=== PATIENT | female | born 1985 | race American Indian/Alaskan Native ===

== ENCOUNTER 2018-12-27 05:00 | Emergency (ER) | payer MEDICAID, OTHER ==
[2018-12-27 05:08] VITALS: BP 157/92
[2018-12-27] MEDS ORDERED: KETOROLAC 30 MG/1 ML INJ IV ONE (05:40)
[2018-12-27] MEDS ORDERED: ONDANSETRON 4 MG/2 ML INJ IV ONE (05:40)
[2018-12-27] MEDS ORDERED: SODIUM CHLORIDE 0.9% 1000 ML 1,000 ML IV ONE (05:40)
[2018-12-27 05:59] LABS: Basophils % (Auto) 0.4 % (0.0-1.8); Eosinophils # (Auto) 0.2 K/mm3 (0.0-0.4); Hematocrit 37.7 % (30.3-42.9); Hemoglobin 13.3 gm/dl (10.1-14.3); Lymphocytes # (Auto) 2.6 K/mm3 (1.2-5.4); Lymphocytes % (Auto) 32.8 % (13.4-35.0); Mean Corpuscular HGB Conc 35 % (30-34); Mean Corpuscular Volume 84 fl (79-97); Monocytes # (Auto) 0.3 K/mm3 (0.0-0.8); Monocytes % (Auto) 4.1 % (0.0-7.3); Platelet Count 307 K/mm3 (140-440); Red Blood Count 4.48 M/mm3 (3.65-5.03); Red Cell Distribution Width 13.6 % (13.2-15.2)
[2018-12-27 06:02] LABS: Bilirubin,Urine NEG (Negative); Blood,Urine LG (Negative); Color,Urine Red (Yellow); Urobilinogen,Urine < 2.0 mg/dL (<2.0)
[2018-12-27 06:05] LABS: RBC,Urine > 182.0 /HPF (0.0-6.0); WBC,Urine > 182.0 /HPF (0.0-6.0)
[2018-12-27] MEDS ORDERED: cefTRIAXone/NS 1 GM/50 ML 1 GM/50 ML BAG IV ONE (06:12)
[2018-12-27 06:13] LABS: Calcium 8.7 mg/dL (8.4-10.2); Hemolysis Index 3
--- NOTE | 2018-12-27 06:19 | Emergency Department Report ---
ED N/V/D HPI - General Chief complaint: Nausea/Vomiting/Diarrhea Stated complaint: VOMITTING, NOT FEELING WELL Source: patient, EMS Mode of arrival: Ambulatory Limitations: No Limitations - History of Present Illness Initial comments: Patient is a 33-year-old -Maldivian female with a history of hypertension, morbid obesity and GERD who presents to the ED with complaint of acute onset persistent severe intermittent nausea and vomiting with diarrhea and diffuse abdominal pain for the last 2 hours. Patient states that the last meal she ate was over 8 hours ago on that was pizza. Patient states that there is no one else at home with similar symptoms since she lives alone. Patient denies fever, chills, chest pain, shortness of breath, dizziness, dysuria, urinary frequency and urgency, vaginal bleeding, vaginal discharge, low back pain, syncope, palpitations, or cough MD complaint: nausea, vomiting, diarrhea, abdominal pain -: Sudden, hour(s) (2) Description of Vomiting: food contents, watery, bilious Description of Diarrhea: water Associated Abdominal Pain: No Location: diffuse Radiation: none Severity: severe Pain Scale: 7 Quality: cramping, aching, sharp Consistency: intermittent Improves with: none Worsens with: none Context: possible food poisoning, sick contacts Associated Symptoms: denies other symptoms, myalgias, diaphoresis. denies: chest pain, cough, fever/chills, headaches, loss of appetite, malaise, rash, dysuria, shortness of breath, syncope, weakness - Related Data Previous Rx's Medication Instructions Recorded Last Taken Type Lisinopril [Zestril TAB] 10 mg PO QDAY #30 tablet 09/15/16 Unknown Rx Pantoprazole [Protonix TAB] 40 mg PO QDAY #30 tablet 09/15/16 Unknown Rx Dicyclomine [Bentyl] 20 mg PO Q6H PRN #24 tablet 12/27/18 Unknown Rx Naproxen 500 mg PO Q12H PRN #20 tablet 12/27/18 Unknown Rx Ondansetron [Zofran Odt] 4 mg PO Q6HR PRN #21 tab.rapdis 12/27/18 Unknown Rx cephALEXin [Keflex] 500 mg PO Q6HR #40 capsule 12/27/18 Unknown Rx Allergies Allergy/AdvReac Type Severity Reaction Status Date / Time No Known Allergies Allergy Verified 12/27/18 05:05 ED Review of Systems ROS: Stated complaint: VOMITTING, NOT FEELING WELL Other details as noted in HPI Constitutional: denies: chills, fever Eyes: denies: eye pain, eye discharge, vision change ENT: denies: ear pain, throat pain Respiratory: denies: cough, shortness of breath, wheezing Cardiovascular: denies: chest pain, palpitations Endocrine: no symptoms reported Gastrointestinal: abdominal pain, nausea, vomiting, diarrhea Genitourinary: denies: urgency, dysuria, discharge Musculoskeletal: denies: back pain, joint swelling, arthralgia Skin: denies: rash, lesions Neurological: denies: headache, weakness, paresthesias Psychiatric: denies: anxiety, depression Hematological/Lymphatic: denies: easy bleeding, easy bruising ED Past Medical Hx - Past Medical History Previous Medical History?: Yes Hx Hypertension: Yes Additional medical history: obesity - Surgical History Past Surgical History?: Yes Additional Surgical History: 2 c-sections - Social History Smoking Status: Never Smoker Substance Use Type: None - Medications Home Medications: Home Medications Medication Instructions Recorded Confirmed Last Taken Type Lisinopril [Zestril TAB] 10 mg PO QDAY #30 tablet 09/15/16 Unknown Rx Pantoprazole [Protonix TAB] 40 mg PO QDAY #30 tablet 09/15/16 Unknown Rx Dicyclomine [Bentyl] 20 mg PO Q6H PRN #24 tablet 12/27/18 Unknown Rx Naproxen 500 mg PO Q12H PRN #20 tablet 12/27/18 Unknown Rx Ondansetron [Zofran Odt] 4 mg PO Q6HR PRN #21 tab.rapdis 12/27/18 Unknown Rx cephALEXin [Keflex] 500 mg PO Q6HR #40 capsule 12/27/18 Unknown Rx ED Physical Exam - General Limitations: No Limitations General appearance: alert, in no apparent distress - Head Head exam: Present: atraumatic, normocephalic, normal inspection - Eye Eye exam: Present: normal appearance, PERRL, EOMI Pupils: Present: normal accommodation - ENT ENT exam: Present: normal exam, normal orophraynx, mucous membranes moist, TM's normal bilaterally, normal external ear exam - Neck Neck exam: Present: normal inspection, full ROM. Absent: tenderness, lymphadenopathy - Respiratory Respiratory exam: Present: normal lung sounds bilaterally. Absent: respiratory distress, wheezes, rales, rhonchi, chest wall tenderness, accessory muscle use, prolonged expiratory - Cardiovascular Cardiovascular Exam: Present: regular rate, normal rhythm, normal heart sounds. Absent: systolic murmur, diastolic murmur, rubs, gallop - GI/Abdominal GI/Abdominal exam: Present: soft, normal bowel sounds. Absent: tenderness, guarding, hyperactive bowel sounds, hypoactive bowel sounds, mass - Extremities Exam Extremities exam: Present: normal inspection, full ROM, normal capillary refill - Back Exam Back exam: Present: normal inspection, full ROM. Absent: tenderness, CVA tenderness (R), muscle spasm, paraspinal tenderness - Neurological Exam Neurological exam: Present: alert, oriented X3, CN II-XII intact, normal gait, reflexes normal - Psychiatric Psychiatric exam: Present: normal affect, normal mood - Skin Skin exam: Present: warm, dry, intact, normal color. Absent: rash ED Course Vital Signs 12/27/18 05:02 Temperature 98.4 F Pulse Rate 60 Respiratory 18 Rate Blood Pressure 157/92 O2 Sat by Pulse 96 Oximetry - Reevaluation(s) Reevaluation #1: 12/27/18 06:16 This is a 33-year-old -Maldivian female who presented to the ED with complaint of acute onset persistent nausea and vomiting and diarrhea and diffuse abdominal pain for the last 12 hours. In the ED, patient is alert and oriented 3 and is not in distress with normal vital signs. Patient was treated for nausea and vomiting in the ED. On reevaluation, patient's pain and nausea and vomiting have significantly improved. Lab test results were reviewed and showed acute urinary tract infection for which she received treatment in the ED. Patient was discharged home on antiemetics and pain medications as well as prescription for antibiotics for UTI. Patient was advised to return to the ED immediately if symptoms get worse otherwise follow-up with her primary care physician in 7-10 days for reevaluation. ED Medical Decision Making - Lab Data Result diagrams: 12/27/18 05:44 - Medical Decision Making This is a 33-year-old -Maldivian female who presented to the ED with compl aint of acute onset persistent nausea and vomiting and diarrhea and diffuse abdominal pain for the last 12 hours. In the ED, patient is alert and oriented 3 and is not in distress with normal vital signs. Patient was treated for nausea and vomiting in the ED. On reevaluation, patient's pain and nausea and vomiting have significantly improved. Lab test results were reviewed and showed acute urinary tract infection for which she received treatment in the ED. Patient was discharged home on antiemetics and pain medications as well as prescription for antibiotics for UTI. Patient was advised to return to the ED immediately if symptoms get worse otherwise follow-up with her primary care alejandro mccabe in 7-10 days for reevaluation. - Differential Diagnosis Viral gastroenteritis; Acute UTI; GERD Critical care attestation.: If time is entered above; I have spent that time in minutes in the direct care of this critically ill patient, excluding procedure time. ED Disposition Clinical Impression: Acute urinary tract infection, Nausea, vomiting and diarrhea, Viral gastroenteritis Abdominal pain Qualifiers: Abdominal location: generalized Qualified Code(s): R10.84 - Generalized abdominal pain Disposition: TO HOME OR SELFCARE Is pt being admited?: No Does the pt Need Aspirin: No Condition: Stable Instructions: Acute Nausea and Vomiting (ED), Abdominal Pain (ED), Urinary Tract Infection in Women (ED), Gastroenteritis (ED) Additional Instructions: Maintain a clear liquid diet for the next 12-24 hours. Take medication with food, drink plenty of fluids and follow-up with your primary care physician in 5-7 days for reevaluation. Return to the ED immediately if symptoms get worse. Prescriptions: Dicyclomine [Bentyl] 20 mg PO Q6H PRN #24 tablet PRN Reason: Pain , Severe (7-10) cephALEXin [Keflex] 500 mg PO Q6HR #40 capsule Naproxen 500 mg PO Q12H PRN #20 tablet PRN Reason: Pain , Severe (7-10) Ondansetron [Zofran Odt] 4 mg PO Q6HR PRN #21 tab.rapdis PRN Reason: Nausea Referrals: PRIMARY CARE,MD [Primary Care Provider] - 3-5 Days Forms: Work/School Release Form(ED) Time of Disposition: 06:27 Print Language: [place]
[2018-12-27 07:36] LABS: Alanine Aminotransferase 12 units/L (7-56); Albumin 4.1 g/dL (3.9-5); BUN/Creatinine Ratio 18; Blood Urea Nitrogen 14 mg/dL (7-17)
== END 2018-12-27 07:46 | disposition home or self-care (01) ==
LOC: ED 05:00
DX: A08.4 Viral intestinal infection, unspecified (principal); N39.0 Urinary tract infection, site not specified
CPT/HCPCS: 36415; 80053; 81001; 83690; 84703; 85025; 96361; 96365; 96375; 99284; J0696; J1885; J2405; J7030

== ENCOUNTER 2019-04-02 01:13 | Emergency (ER) | payer OTHER ==
[2019-04-02] MEDS ORDERED: FAMOTIDINE 20 MG/2 ML INJ IV ONE (02:46)
[2019-04-02] MEDS ORDERED: DICYCLOMINE 20 MG TAB PO ONE (02:46)
[2019-04-02] MEDS ORDERED: SODIUM CHLORIDE 0.9% 1000 ML 1,000 ML IV ONE (02:46)
[2019-04-02] MEDS ORDERED: ONDANSETRON 4 MG/2 ML INJ IV ONE (02:46)
[2019-04-02 03:04] LABS: Bacteria,Urine 1+ /HPF (Negative); Bilirubin,Urine NEG (Negative); Blood,Urine NEG (Negative); Color,Urine Yellow (Yellow); Mucus,Urine 2+ /HPF; Urobilinogen,Urine < 2.0 mg/dL (<2.0)
[2019-04-02 03:10] LABS: Basophils % (Auto) 0.3 % (0.0-1.8); Eosinophils # (Auto) 0.1 K/mm3 (0.0-0.4); Eosinophils % (Auto) 0.7 % (0.0-4.3); Hematocrit 39.2 % (30.3-42.9); Lymphocytes # (Auto) 1.6 K/mm3 (1.2-5.4); Lymphocytes % (Auto) 17.9 % (13.4-35.0); Mean Corpuscular HGB Conc 36 % (30-34); Mean Corpuscular Volume 84 fl (79-97); Monocytes # (Auto) 0.3 K/mm3 (0.0-0.8); Monocytes % (Auto) 3.2 % (0.0-7.3); Platelet Count 422 K/mm3 (140-440); Red Blood Count 4.65 M/mm3 (3.65-5.03); Red Cell Distribution Width 14.4 % (13.2-15.2)
[2019-04-02 03:34] LABS: Alanine Aminotransferase 21 units/L (7-56); Albumin 4.4 g/dL (3.9-5); BUN/Creatinine Ratio 13; Blood Urea Nitrogen 10 mg/dL (7-17); Calcium 8.9 mg/dL (8.4-10.2); Hemolysis Index 0
--- NOTE | 2019-04-02 04:26 | Emergency Department Report ---
ED N/V/D HPI - General Chief complaint: Abdominal Pain Stated complaint: SEVERE ABD PAIN/EMESIS Source: patient Mode of arrival: Ambulatory Limitations: No Limitations - History of Present Illness Initial comments: Patient is a 33-year-old Romanian female with a history of hypertension, morbid obesity and [id number] diabetes who presents to the ED record of acute onset persistent intermittent nausea and vomiting with epigastric pain and diarrhea for the last 4 hours. The patient states that her last meal was from a fast food restaurant and suspects that she may have had food poisoning. Patient denies dysuria, urinary frequency and urgency, hematemesis, hematochezia, vaginal bleeding, vaginal discharge, chest pain, shortness of breath, sore throat, dizziness, headache, back pain or syncope. MD complaint: nausea, vomiting, abdominal pain -: Sudden, hour(s) (4) Description of Vomiting: food contents, watery Description of Diarrhea: water Associated Abdominal Pain: Yes (epigastric and diffuse) Location: diffuse, epigastric Radiation: none Severity: moderate Pain Scale: 5 Quality: cramping, aching Consistency: intermittent Improves with: none Worsens with: vomiting Context: possible food poisoning Associated Symptoms: denies other symptoms, loss of appetite, malaise, nausea/v omiting. denies: myalgias, chest pain, cough, diaphoresis, fever/chills, headaches, rash, dysuria, shortness of breath, syncope, weakness, other - Related Data Previous Rx's Medication Instructions Recorded Last Taken Type Pantoprazole [Protonix TAB] 40 mg PO QDAY #30 tablet 09/15/16 Unknown Rx lisinopriL [Zestril TAB] 10 mg PO QDAY #30 tablet 09/15/16 Unknown Rx Dicyclomine [Bentyl] 20 mg PO Q6H PRN #24 tablet 12/27/18 Unknown Rx Naproxen 500 mg PO Q12H PRN #20 tablet 12/27/18 Unknown Rx Ondansetron [Zofran Odt] 4 mg PO Q6HR PRN #21 tab.rapdis 12/27/18 Unknown Rx cephALEXin [Keflex] 500 mg PO Q6HR #40 capsule 12/27/18 Unknown Rx Dicyclomine [Bentyl] 20 mg PO Q6H PRN #20 tablet 04/02/19 Unknown Rx Famotidine [Pepcid] 20 mg PO Q12H #30 tablet 04/02/19 Unknown Rx Ondansetron [Zofran ODT TAB] 8 mg PO Q8HR PRN #21 tab.rapdis 04/02/19 Unknown Rx Allergies Allergy/AdvReac Type Severity Reaction Status Date / Time No Known Allergies Allergy Verified 12/27/18 05:05 ED Review of Systems ROS: Stated complaint: SEVERE ABD PAIN/EMESIS Other details as noted in HPI Constitutional: denies: chills, fever Eyes: denies: eye pain, eye discharge, vision change ENT: denies: ear pain, throat pain Respiratory: denies: cough, shortness of breath, wheezing Cardiovascular: denies: chest pain, palpitations Endocrine: no symptoms reported Gastrointestinal: abdominal pain, nausea, vomiting, diarrhea Genitourinary: denies: urgency, dysuria, discharge Musculoskeletal: denies: back pain, joint swelling, arthralgia Skin: denies: rash, lesions Neurological: denies: headache, weakness, paresthesias Psychiatric: denies: anxiety, depression Hematological/Lymphatic: denies: easy bleeding, easy bruising ED Past Medical Hx - Past Medical History Previous Medical History?: Yes Hx Hypertension: Yes Additional medical history: Morbid obesity - Surgical History Past Surgical History?: Yes Additional Surgical History: 2 c-sections - Social History Smoking Status: Never Smoker Substance Use Type: Alcohol - Medications Home Medications: Home Medications Medication Instructions Recorded Confirmed Last Taken Type Pantoprazole [Protonix TAB] 40 mg PO QDAY #30 tablet 09/15/16 Unknown Rx lisinopriL [Zestril TAB] 10 mg PO QDAY #30 tablet 09/15/16 Unknown Rx Dicyclomine [Bentyl] 20 mg PO Q6H PRN #24 tablet 12/27/18 Unknown Rx Naproxen 500 mg PO Q12H PRN #20 tablet 12/27/18 Unknown Rx Ondansetron [Zofran Odt] 4 mg PO Q6HR PRN #21 tab.rapdis 12/27/18 Unknown Rx cephALEXin [Keflex] 500 mg PO Q6HR #40 capsule 12/27/18 Unknown Rx Dicyclomine [Bentyl] 20 mg PO Q6H PRN #20 tablet 04/02/19 Unknown Rx Famotidine [Pepcid] 20 mg PO Q12H #30 tablet 04/02/19 Unknown Rx Ondansetron [Zofran ODT TAB] 8 mg PO Q8HR PRN #21 tab.rapdis 04/02/19 Unknown Rx ED Physical Exam - General Limitations: No Limitations General appearance: alert, in no apparent distress - Head Head exam: Present: atraumatic, normocephalic, normal inspection - Eye Eye exam: Present: normal appearance, PERRL, EOMI Pupils: Present: normal accommodation - ENT ENT exam: Present: normal exam, normal orophraynx, mucous membranes moist, TM's normal bilaterally, normal external ear exam - Neck Neck exam: Present: normal inspection, full ROM - Respiratory Respiratory exam: Present: normal lung sounds bilaterally. Absent: respiratory distress, wheezes, rales, rhonchi, chest wall tenderness, accessory muscle use, prolonged expiratory - Cardiovascular Cardiovascular Exam: Present: regular rate, normal rhythm, normal heart sounds. Absent: systolic murmur, diastolic murmur, rubs, gallop - GI/Abdominal GI/Abdominal exam: Present: soft, normal bowel sounds. Absent: tenderness, guarding, rebound, hyperactive bowel sounds - Extremities Exam Extremities exam: Present: normal inspection, full ROM, normal capillary refill - Back Exam Back exam: Present: normal inspection, full ROM. Absent: tenderness, muscle spasm, paraspinal tenderness - Neurological Exam Neurological exam: Present: alert, oriented X3, CN II-XII intact, normal gait, reflexes normal - Psychiatric Psychiatric exam: Present: normal affect, normal mood - Skin Skin exam: Present: warm, dry, intact, normal color. Absent: rash ED Course Vital Signs 04/02/19 01:17 Temperature 97.6 F Pulse Rate 68 Respiratory 18 Rate Blood Pressure 145/94 O2 Sat by Pulse 96 Oximetry ED Medical Decision Making - Lab Data Result diagrams: 04/02/19 02:42 04/02/19 02:42 - Medical Decision Making This is a 33-year-old female who presented to the ED with persistent nausea and vomiting with diarrhea and epigastric pain that radiated diffusely for the last several hours after eating food from a fast food restaurant. In the ED, patient is alert and oriented 3 and is not in any distress. Lab test results were reviewed and are all nonactionable. Patient was treated for nausea and vomiting in the ED, also given antacid and pain medications. On reevaluation, patient's symptoms resolved in the ED. Patient passed a challenge in the ED. Patient was discharged home on medications and advised to maintain a clear liquid diet for 12-24 hours and to follow-up with primary care physician in 3-5 days for reevaluation or return to the ED immediately if symptoms worse. - Differential Diagnosis Viral gastroenteritis; GERD; Dehydration; UTI Critical care attestation.: If time is entered above; I have spent that time in minutes in the direct care of this critically ill patient, excluding procedure time. ED Disposition Clinical Impression: Viral gastroenteritis, Nausea, vomiting and diarrhea Abdominal pain Qualifiers: Abdominal location: generalized Qualified Code(s): R10.84 - Generalized abdominal pain Disposition: TO HOME OR SELFCARE Is pt being admited?: No Does the pt Need Aspirin: No Condition: Stable Instructions: Abdominal Pain (ED), Acute Nausea and Vomiting (ED), Gastroenteritis (ED) Additional Instructions: Maintain a clear liquid diet for 12-24 hours, take medications as needed for nausea and vomiting and pain. Follow-up with your primary care physician in 3-5 days for reevaluation or return to the ED immediately if symptoms get worse. Prescriptions: Dicyclomine [Bentyl] 20 mg PO Q6H PRN #20 tablet PRN Reason: Pain , Severe (7-10) Famotidine [Pepcid] 20 mg PO Q12H #30 tablet Ondansetron [Zofran ODT TAB] 8 mg PO Q8HR PRN #21 tab.rapdis PRN Reason: Nausea Referrals: GULSHAN YBARRA MD [Staff Physician] - 3-5 Days Time of Disposition: 04:44 Print Language: [place]
[2019-04-02 05:03] VITALS: BP 121/65
== END 2019-04-02 05:43 | disposition home or self-care (01) ==
LOC: ED 01:13
DX: A08.4 Viral intestinal infection, unspecified (principal); I10 Essential (primary) hypertension; Z98.890 Other specified postprocedural states; Z79.899 Other long term (current) drug therapy
CPT/HCPCS: 36415; 80053; 81001; 83690; 84703; 85025; 96361; 96374; 96375; 99283; J2405